=== PATIENT | male | born 1985 | race Caucasian/White ===

== ENCOUNTER 2016-10-09 11:39 | Emergency (ER) | payer MEDICARE, MEDICAID ==
[2016-10-09 11:53] VITALS: BP 110/77; PULSE 81; TEMP 98; O2SAT 99
[2016-10-09] MEDS ORDERED: Albuterol-Ipratrop 3 mg / 0.5 (3 ml) UD IH STA (12:07)
--- NOTE | 2016-10-09 12:08 | C.PDOC ---
History Of Present Illness A 31 year old male presents to the emergency room with complaints of wheezing and chest tightness for the last several days. Patient reports that he has had Asthma his entire life. Patient states that the current symptoms feel similar to previous episodes of asthma exacerbation. Patient also notes a dry cough. Patient reports that his inhaler provided no relief. Patient denies any other health problems, headaches, dizziness, fever, nausea, vomiting, or any other complaints. Time Seen by Provider: 10/09/16 11:55 Chief Complaint (Nursing): Shortness Of Breath History Per: Patient History/Exam Limitations: no limitations Onset/Duration Of Symptoms: Days Current Symptoms Are (Timing): Still Present Quality: Tightness Current Respiratory Medications: See Home Med List Severity: Mild Associated Symptoms: denies: Fever, Chills Recent travel outside of the [place]: No Past Medical History Reviewed: Historical Data, Nursing Documentation, Vital Signs Vital Signs: Last Vital Signs Temp 98.0 F 10/09/16 11:50 Pulse 81 10/09/16 11:50 Resp 17 10/09/16 11:50 BP 110/77 10/09/16 11:50 Pulse Ox 99 10/09/16 12:27 - Medical History PMH: Anxiety, Asthma Denies: Alzheimer's Disease, Anemia, Atrial Fibrillation, Bronchitis, Cardia Arrhythmia, CHF, COPD, Dementia, Diabetes, Emphysema, Hepatitis, HIV, HTN, Hypercholesterolemia, Kidney Stones, Migraine, Mitral Valve Prolapse, Multiple Sclerosis, Parkinson's Disease, Peripheral Edema, Pneumonia, Pulmonary Embolism , Chronic Kidney Disease, Seizures, Sexually Transmitted Disease, Sleep Apnea, TIA Surgical History: Denies: Pacemaker Family History: States: Unknown Family Hx - Social History Hx Tobacco Use: No Hx Alcohol Use: Yes Hx Substance Use: No - Immunization History Hx Tetanus Toxoid Vaccination: No Hx Influenza Vaccination: No Hx Pneumococcal Vaccination: No Review Of Systems Except As Marked, All Systems Reviewed And Found Negative. Constitutional: Negative for: Fever, Chills Cardiovascular: Positive for: Chest Pain (Chest tightness due to Asthma. ) Respiratory: Positive for: Cough (Dry cough), Wheezing Gastrointestinal: Negative for: Nausea, Vomiting, Diarrhea Neurological: Negative for: Headache, Dizziness Physical Exam - Physical Exam Appears: Well, Non-toxic Skin: Normal Color, Warm, Dry, No Rash Head: Atraumatic, Normacephalic Eye(s): bilateral: Normal Inspection Nose: Normal, No Discharge Oral Mucosa: Moist Throat: Normal, No Erythema, No Exudate Neck: Normal ROM, No Midline Cervical Tenderness, No Paracervical Tenderness, Supple Cardiovascular: Rhythm Regular Respiratory: Normal Breath Sounds, No Rales, No Rhonchi, No Wheezing Gastrointestinal/Abdominal: Soft, No Tenderness, No Guarding, No Rebound Back: No CVA Tenderness, No Vertebral Tenderness Extremity: Normal ROM, No Tenderness Neurological/Psych: Oriented x3, Normal Speech, Normal Cognition ED Course And Treatment O2 Sat by Pulse Oximetry: 99 Medical Decision Making Medical Decision Makin pt noted to have eloped Disposition - Disposition Referrals: [facility] at [facility] [Outside] Disposition: ELOPEMENT - ER ONLY Disposition Time: 12:54 Condition: UNKNOWN Additional Instructions: Please follow up with your doctor. Return to the ER for any worsening symptoms or for any other concerns. Prescriptions: Albuterol Sulfate [Proair Hfa] 0.09 mg IH Q6H PRN #1 inh PRN Reason: Wheezing Forms: General Discharge Instructions - Clinical Impression Clinical Impression: Exacerbation of asthma - Scribe Statement The provider has reviewed the documentation as recorded by the Scribe Vincenzo Mcdonald All medical record entries made by the Eloisaibe were at my direction and personally dictated by me. I have reviewed the chart and agree that the record accurately reflects my personal performance of the history, physical exam, medical decision making, and the department course for this patient. I have also personally directed, reviewed, and agree with the discharge instructions and disposition.
[2016-10-09] MEDS ORDERED: Albuterol-Ipratrop 3 mg / 0.5 (3 ml) UD ONE (12:14)
[2016-10-09 13:24] VITALS: RESP 18
== END 2016-10-09 13:00 | disposition left against medical advice (07) ==
LOC: C.ER 11:39
DX: J45.901 Unspecified asthma with (acute) exacerbation (principal)

== ENCOUNTER 2017-03-05 17:01 | Emergency (ER) | payer MEDICARE, MEDICAID ==
[2017-03-05 17:16] VITALS: RESP 18
[2017-03-05] MEDS ORDERED: Albuterol-Ipratrop 3 mg / 0.5 (3 ml) UD INH STA (17:46)
--- NOTE | 2017-03-05 17:46 | C.PDOC ---
History Of Present Illness 31 year old male with a Hx of asthma, occasionally smokes, no Hx of intubations who presents to the ER with a complaint of cough w/ yellow sputum and SOB. Patient states he ran out of his inhaler this morning; denies fever, chills, or chest pain. Flow max is unknown. Time Seen by Provider: 03/05/17 17:30 Chief Complaint (Nursing): Shortness Of Breath History Per: Patient History/Exam Limitations: no limitations Onset/Duration Of Symptoms: Hrs Current Symptoms Are (Timing): Still Present Initiating Event: Out Of Medications Current Respiratory Medications: Albuterol Associated Symptoms: Productive Cough. denies: Fever, Chills, Chest Pain Recent travel outside of the [place]: No Past Medical History Vital Signs: Last Vital Signs Temp 98.5 F 03/05/17 19:03 Pulse 68 03/05/17 19:03 Resp 18 03/05/17 19:03 BP 112/68 03/05/17 19:03 Pulse Ox 100 03/05/17 19:03 - Medical History PMH: Anxiety, Asthma Surgical History: No Surg Hx Family History: States: Unknown Family Hx - Social History Hx Tobacco Use: No Hx Alcohol Use: Yes Hx Substance Use: No - Immunization History Hx Tetanus Toxoid Vaccination: No Hx Influenza Vaccination: No Hx Pneumococcal Vaccination: No Review Of Systems Constitutional: Negative for: Fever, Chills Cardiovascular: Negative for: Chest Pain Respiratory: Positive for: Cough, Shortness of Breath, Sputum Physical Exam - Physical Exam Appears: Non-toxic, No Acute Distress Skin: Normal Color, Warm, Dry Head: Atraumatic, Normacephalic Oral Mucosa: Moist Chest: Symmetrical, No Tenderness Cardiovascular: Rhythm Regular Respiratory: No Rales, Rhonchi (Few that clear with cough), Wheezing (Bilateral) Gastrointestinal/Abdominal: Soft, No Tenderness Neurological/Psych: Oriented x3, Normal Speech, Normal Cognition ED Course And Treatment O2 Sat by Pulse Oximetry: 99 (Room air) Pulse Ox Interpretation: Normal Medical Decision Making Medical Decision Making: pf 350 prior to treatments 629 pm pt feeling much better after nebulizer tx, no longer wheezing on exam, pf now 470. will d/c with prednisone and mdi/ Disposition Counseled Patient/Family Regarding: Diagnosis, Need For Followup, Rx Given - Disposition Referrals: [facility] at [facility] [Outside] Disposition: HOME/ ROUTINE Disposition Time: 18:31 Condition: STABLE Additional Instructions: Follow up with medical clinic. Use inhaler as prescribed. Take steroids as prescribed. Return to ER for any worsening symptoms. Prescriptions: Albuterol 0.083% [Albuterol 0.083% Inhal Brandi (2.5 mg/3 ml) UD] 2.5 mg IH Q8 #50 neb Albuterol HFA [Ventolin HFA 90 mcg/actuation (8 g)] 2 puff IH Q6 #1 inhaler predniSONE [predniSONE Tab] 2 tab PO DAILY #8 tab Instructions: Asthma (ED) Forms: [email or web address] (Estonian), General Discharge Instructions - Clinical Impression Clinical Impression: Exacerbation of asthma - Scribe Statement The provider has reviewed the documentation as recorded by the Scribbrook Hope All medical record entries made by the Eloisaibbrook were at my direction and personally dictated by me. I have reviewed the chart and agree that the record accurately reflects my personal performance of the history, physical exam, medical decision making, and the department course for this patient. I have also personally directed, reviewed, and agree with the discharge instructions and disposition.
[2017-03-05] MEDS ORDERED: Albuterol-Ipratrop 3 mg / 0.5 (3 ml) UD ONE (18:02)
[2017-03-05 19:05] VITALS: BP 112/68; PULSE 68; TEMP 98.5
[2017-03-05 21:08] VITALS: O2SAT 99
== END 2017-03-05 19:04 | disposition home or self-care (01) ==
LOC: C.ER 17:01
DX: J45.901 Unspecified asthma with (acute) exacerbation (principal)

== ENCOUNTER 2017-10-08 12:26 | Emergency (ER) | payer MEDICARE, MEDICAID ==
[2017-10-08 12:33] VITALS: BMI 22.7
[2017-10-08 12:36] VITALS: TEMP 98.1
[2017-10-08] MEDS ORDERED: Albuterol-Ipratrop 3 mg / 0.5 (3 ml) UD ONE (13:20)
--- NOTE | 2017-10-08 14:10 | C.PDOC ---
History Of Present Illness Patient with history of Asthma presents to ED with c/o left chest tightness and cough associated with wheezing for 2 days. Patient ran out of inhaler and was unable to get any treatment at home for symptoms. Patient denies fever, hemoptysis, chest pain, vomiting or any other complaints at this time. Time Seen by Provider: 10/08/17 12:46 Chief Complaint (Nursing): Shortness Of Breath History Per: Patient History/Exam Limitations: no limitations Onset/Duration Of Symptoms: Days Current Symptoms Are (Timing): Still Present Past Medical History Reviewed: Historical Data, Nursing Documentation, Vital Signs Vital Signs: Last Vital Signs Temp 98.1 F 10/08/17 12:33 Pulse 64 10/08/17 14:36 Resp 20 10/08/17 14:36 BP 104/64 10/08/17 14:36 Pulse Ox 98 10/08/17 14:38 - Medical History PMH: Anxiety, Asthma Surgical History: No Surg Hx Family History: States: No Known Family Hx - Social History Hx Tobacco Use: No Hx Alcohol Use: Yes Hx Substance Use: No - Immunization History Hx Tetanus Toxoid Vaccination: No Hx Influenza Vaccination: No Hx Pneumococcal Vaccination: No Review Of Systems Constitutional: Negative for: Fever, Chills Cardiovascular: Positive for: Chest Pain Respiratory: Positive for: Cough, Wheezing. Negative for: Shortness of Breath Gastrointestinal: Negative for: Nausea, Vomiting Skin: Negative for: Rash Neurological: Negative for: Weakness, Numbness Physical Exam - Physical Exam Appears: Non-toxic, No Acute Distress, Other (No respiratory distress, Speaking in full sentences) Skin: Warm, Dry, No Rash Head: Atraumatic, Normacephalic Eye(s): bilateral: Normal Inspection Oral Mucosa: Moist Neck: Normal ROM, Supple Cardiovascular: Rhythm Regular Respiratory: No Rales, No Rhonchi, Wheezing (scattered) Gastrointestinal/Abdominal: Soft, No Tenderness, No Guarding, No Rebound Extremity: Normal ROM, Capillary Refill (<2 seconds) Neurological/Psych: Oriented x3, Normal Speech, Normal Cognition ED Course And Treatment O2 Sat by Pulse Oximetry: 98 (RA) Pulse Ox Interpretation: Normal Medical Decision Making Medical Decision Making: Plan: 2 duoneb given, Prednisone On re-exam, the patient reports improvement of symptoms. Lungs are CTA, heart is RRR, abdomen is soft, non-tender and tolerating Po well. Ambulatory in the ED with steady gait. Patient was instructed to follow up with the medical doctor /clinic within 1-2 days. Return to the ED if worsened. Disposition - Disposition Referrals: [facility] at [facility] [Outside] Disposition: HOME/ ROUTINE Disposition Time: 14:08 Condition: GOOD Additional Instructions: Follow up with the medical doctor within 1 week. Return if worsened. 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 - Scribe Statement The provider has reviewed the documentation as recorded by the Scribbrook Parker All medical record entries made by the Courtney were at my direction and personally dictated by me. I have reviewed the chart and agree that the record accurately reflects my personal performance of the history, physical exam, medical decision making, and the department course for this patient. I have also personally directed, reviewed, and agree with the discharge instructions and disposition.
[2017-10-08 14:37] VITALS: BP 104/64; PULSE 64; RESP 20
[2017-10-08 14:38] VITALS: O2SAT 98
== END 2017-10-08 14:37 | disposition home or self-care (01) ==
LOC: C.ER 12:26
DX: J45.901 Unspecified asthma with (acute) exacerbation (principal); F17.210 Nicotine dependence, cigarettes, uncomplicated